=== PATIENT | female | born 1990 | race Two or more races ===

== ENCOUNTER → 2024-12-25 | Outpatient (CLI) | payer MEDICAID ==
[2024-12-25 14:32] LABS: Prothrombin Time 10.6 sec (9.3-11.8)
[2024-12-25 14:58] LABS: Chloride 105 mmol/L (98-107); Sodium 142 mmol/L (136-145)
[2024-12-25 14:59] LABS: Anion Gap 9 (5-15); Calcium 9.4 mg/dL (8.7-10.4); Carbon Dioxide 28 mmol/L (20-31)
[2024-12-25 15:04] LABS: BUN/Creatinine Ratio 9.9 (10.0-20.0)
[2024-12-25 15:15] LABS: Blood Urea Nitrogen 7 mg/dL (9-23); Glucose 125 mg/dL (74-106)
== END | disposition home or self-care (01) ==
LOC: LAB 13:41
PROVIDERS: ATTEND Urology
DX: N28.89 Other specified disorders of kidney and ureter (principal)
CPT/HCPCS: 36415; 80048; 85610; 85730

== ENCOUNTER 2025-03-13 13:25 | Outpatient (CLI) | payer MEDICAID ==
[2025-03-13 15:06] LABS: Blood Urea Nitrogen 10.0 mg/dL (9-23)
== END 2025-03-13 17:00 | disposition home or self-care (01) ==
LOC: LAB 13:25
PROVIDERS: ATTEND Urology
DX: C64.2 Malignant neoplasm of left kidney, except renal pelvis (principal)
CPT/HCPCS: 36415; 82565; 84520